=== PATIENT | male | born 1990 | race Two or more races ===

== ENCOUNTER 2019-08-24 00:22 | Emergency (ER) | payer MEDICAID ==
[~2019-08-24] VITALS: Ht 188 cm; Wt 161.9 kg
--- NOTE | 2019-08-24 01:16 | NUR ---
PT AAOX4. AMBULATORY BIBSELF C/O LOWER BACK PAIN RADIATING TO THE SIDE X 3 DAYS. DENIES TRAUMA.MD AT BEDSIDE FOR EVAL. VSS.
--- NOTE | 2019-08-24 01:16 | NUR ---
PT CAME INTO THE ED C/O LOWER BACK PAIN RADIATING TO THE SIDE X 3 DAYS. DENIES TRAUMA. VSS. AMBULATORY. PT AAOX4, BREATHING EVEN AND UNLABORED ON RA W/ AND NOTED. AWAITING FOR MD KNOTT
--- NOTE | 2019-08-24 01:17 | NUR ---
KIERA AT BEDSIDE
[2019-08-24] MEDS ORDERED: DEXAMETHASONE SOD PHOSPHATE 10 MG/ML VIAL ONE (01:26)
[2019-08-24] MEDS ORDERED: KETOROLAC TROMETHAMINE INJ 60 MG/2 ML VIAL IM ONE ×2 (01:26→01:30)
[2019-08-24] MEDS ORDERED: CYCLOBENZAPRINE 10 MG TABLET ONE (01:26)
[2019-08-24] MEDS ORDERED: CYCLOBENZAPRINE 10 MG TABLET PO ONE (01:30)
[2019-08-24] MEDS ORDERED: DEXAMETHASONE SOD PHOSPHATE 4 MG/ML VIAL IM ONE (01:30)
[2019-08-24] MEDS ORDERED: HYDROCODONE/APAP 5/325MG 1 EACH TABLET ONE (02:17)
[2019-08-24] MEDS ORDERED: HYDROCODONE/APAP 5/325MG 1 EACH TABLET PO ONE (02:30)
[2019-08-24 02:48] VITALS: BP 136/76
--- NOTE | 2019-08-24 02:48 | NUR ---
Patient discharged to home in stable condition. Written and verbal after care instructions given. Patient verbalizes understanding of instruction and RX. vss.
== END 2019-08-24 02:49 | disposition home or self-care (01) ==
LOC: ER 00:30
DX: M54.42 Lumbago with sciatica, left side (principal)
CPT/HCPCS: 96372 ×2; 99283; J1100; J1885

== ENCOUNTER 2019-09-11 23:10 | Emergency (ER) | payer MEDICAID ==
[~2019-09-11] VITALS: Ht 188 cm; Wt 161.9 kg
[2019-09-12] MEDS ORDERED: HYDROCODONE/APAP 10/325MG 1 EA TABLET ONE (00:20)
[2019-09-12] MEDS ORDERED: KETOROLAC TROMETHAMINE INJ 30 MG/ML VIAL ONE (00:20)
--- NOTE | 2019-09-12 00:20 | NUR ---
PT CAME TO ER C/O LOWER BACK PAIN THAT RADIATES TO THE RIGHT. PT STATES THAT HE HAS BEEN HAVING PAIN FOR ABOUT 4x DAYS. AAOX4. NO SOB. BREATHING EVENLY AND UNLABORED. AMBULATORY WITH STEADY GAIT.
[2019-09-12 00:25] LABS: BASOPHILS % (AUTO) 0.1 % (0.0-2.0); EOSINOPHILS % (AUTO) 2.8 % (0.0-6.0); HEMATOCRIT 43 % (39-51); HEMOGLOBIN 14.2 g/dL (13.5-17.5); LYMPHOCYTES # (AUTO) 2.2 /CMM (0.8-4.8); LYMPHOCYTES % (AUTO) 28.5 % (20.0-44.0); MEAN CORPUSCULAR HGB CONC 33 g/dl (31.0-36.0); MEAN CORPUSCULAR VOLUME 81 fL (80-96); MONOCYTES # (AUTO) 0.5 /CMM (0.1-1.30); MONOCYTES % (AUTO) 6.2 % (2.0-12.0); NEUTROPHILS # (AUTO) 4.8 /CMM (1.8-8.9); NEUTROPHILS % (AUTO) 62.4 % (43.0-81.0); PLATELET COUNT (AUTO) 170 /CMM (150-450); RED BLOOD CELL COUNT(AUTO) 5.28 MIL/uL (4.5-6.0); WHITE BLOOD COUNT (AUTO) 7.7 K/uL (4.3-11.0)
[2019-09-12] MEDS ORDERED: KETOROLAC TROMETHAMINE INJ 60 MG/2 ML VIAL IM ONE (00:30)
[2019-09-12] MEDS ORDERED: HYDROCODONE/APAP 10/325MG 1 EA TABLET PO ONE (00:30)
--- NOTE | 2019-09-12 00:30 | NUR ---
TAKEN TO CT
--- NOTE | 2019-09-12 00:35 | NUR ---
RETURNED FROM CT
[2019-09-12 00:43] LABS: CALCIUM, SERUM 8.6 mg/dL (8.5-10.1); CARBON DIOXIDE 27 mmol/L (21-32); CHLORIDE 105 mmol/L (98-107); GLUCOSE 112 mg/dL (74-106); POTASSIUM 3.8 mmol/L (3.5-5.1); SODIUM SERUM 141 mmol/L (136-145); UREA NITROGEN, BLOOD 17 mg/dL (7-18)
[2019-09-12 00:47] LABS: ALANINE AMINOTRANSFERASE 49 U/L (12-78); ALBUMIN 3.8 g/dL (3.4-5.0); ALKALINE PHOSPHATASE 102 U/L (46-116); ASPARTATE AMINOTRANSFERASE 25 U/L (15-37); BILIRUBIN,TOTAL 0.3 mg/dL (0.2-1.0); TOTAL PROTEIN, SERUM 7.2 g/dL (6.4-8.2)
[2019-09-12 01:07] LABS: C-REACTIVE PROTEIN < 0.2 mg/dL (0.0-0.9)
[2019-09-12] MEDS ORDERED: HYDROMORPHONE 1 MG/1 ML DISP.SYRIN ONE (02:13)
--- NOTE | 2019-09-12 02:20 | NUR ---
Patient discharged to home in stable condition. Written and verbal after care instructions given. Patient verbalizes understanding of instruction. Patient is ambulatory with a steady gait.
[2019-09-12 02:21] VITALS: BP 142/78
--- NOTE | 2019-09-12 02:21 | NUR ---
PATIENT STATES HIS SISTER WILL DRIVE.
[2019-09-12] MEDS ORDERED: HYDROMORPHONE INJ 0.5 MG/0.5 ML SYRINGE IM ONE (02:30)
== END 2019-09-12 02:22 | disposition home or self-care (01) ==
LOC: ER 23:18
DX: M51.26 Other intervertebral disc displacement, lumbar region (principal); E66.01 Morbid (severe) obesity due to excess calories; Z68.42 Body mass index [BMI] 45.0-49.9, adult
CPT/HCPCS: 36415; 72131; 80053; 85025; 86140; 96372 ×2; 99284; J1170; J1885